=== PATIENT | female | born 1980 | race Two or more races ===

== ENCOUNTER 2024-02-15 13:02 | Outpatient (RCR) | payer OTHER, SELFPAY | END 2024-02-15 23:59 | disposition home or self-care (01) | LOC: RPT 13:02 | PROVIDERS: ATTENDING PHYSICIAN Physical Medicine & Rehabilitation Sports Medicine; FAMILY PHYSICIAN Family Medicine | DX: N39.3 Stress incontinence (female) (male) (principal); M25.552 Pain in left hip; M62.89 Other specified disorders of muscle | CPT/HCPCS: 97110; 97112; 97140; 97163 ==

== ENCOUNTER 2024-03-14 14:02 | Outpatient (RCR) | payer OTHER, SELFPAY | END 2024-03-14 23:59 | disposition home or self-care (01) | LOC: RPT 14:02 | PROVIDERS: ATTENDING PHYSICIAN Physical Medicine & Rehabilitation Sports Medicine; FAMILY PHYSICIAN Family Medicine | DX: N39.3 Stress incontinence (female) (male) (principal); M25.552 Pain in left hip; M62.89 Other specified disorders of muscle | CPT/HCPCS: 97110; 97112; 97140 ==

== ENCOUNTER 2024-04-18 15:02 | Outpatient (RCR) | payer OTHER, SELFPAY | END 2024-04-18 23:59 | disposition home or self-care (01) | LOC: RPT 15:02 | PROVIDERS: ATTENDING PHYSICIAN Physical Medicine & Rehabilitation Sports Medicine; FAMILY PHYSICIAN Family Medicine | DX: N39.3 Stress incontinence (female) (male) (principal); M25.552 Pain in left hip; M62.89 Other specified disorders of muscle; Z73.6 Limitation of activities due to disability | CPT/HCPCS: 97110; 97112; 97140 ==

== ENCOUNTER → 2024-06-13 06:41 | Outpatient (REF) | payer OTHER, SELFPAY | LOC: WDC 06:41 | PROVIDERS: ATTENDING PHYSICIAN Obstetrics & Gynecology; FAMILY PHYSICIAN Family Medicine | DX: Z12.31 Encounter for screening mammogram for malignant neoplasm of breast (principal) | CPT/HCPCS: 77063; 77067 ==

== ENCOUNTER 2024-11-06 07:08 | Outpatient (RCR) | payer OTHER, SELFPAY | END 2024-11-06 23:59 | disposition home or self-care (01) | LOC: RPT 07:08 | PROVIDERS: ATTENDING PHYSICIAN Physical Medicine & Rehabilitation Sports Medicine; FAMILY PHYSICIAN Family Medicine | DX: M62.89 Other specified disorders of muscle (principal); N39.3 Stress incontinence (female) (male); M54.17 Radiculopathy, lumbosacral region; M25.552 Pain in left hip; Z73.6 Limitation of activities due to disability; M72.2 Plantar fascial fibromatosis | CPT/HCPCS: 97110; 97162 ==

== ENCOUNTER 2024-12-11 15:45 | Outpatient (RCR) | payer OTHER, SELFPAY | END 2024-12-11 23:59 | disposition home or self-care (01) | LOC: RPT 15:45 | PROVIDERS: ATTENDING PHYSICIAN Physical Medicine & Rehabilitation Sports Medicine; FAMILY PHYSICIAN Family Medicine | DX: M62.89 Other specified disorders of muscle (principal); N39.3 Stress incontinence (female) (male); M54.17 Radiculopathy, lumbosacral region; M25.552 Pain in left hip; Z73.6 Limitation of activities due to disability; M72.2 Plantar fascial fibromatosis | CPT/HCPCS: 97110; 97112; 97140 ==

== ENCOUNTER 2025-01-01 17:03 | Outpatient (RCR) | payer OTHER, SELFPAY | END 2025-01-02 07:28 | disposition home or self-care (01) | LOC: RPT 17:03 | PROVIDERS: ATTENDING PHYSICIAN Physical Medicine & Rehabilitation Sports Medicine; FAMILY PHYSICIAN Family Medicine | DX: M62.89 Other specified disorders of muscle (principal); N39.3 Stress incontinence (female) (male); M54.17 Radiculopathy, lumbosacral region; M25.552 Pain in left hip; Z73.6 Limitation of activities due to disability; M72.2 Plantar fascial fibromatosis | CPT/HCPCS: 97110; 97112; 97140 ==

== ENCOUNTER → 2025-06-17 06:35 | Outpatient (REF) | payer OTHER, SELFPAY | LOC: WDC 06:35 | PROVIDERS: ATTENDING PHYSICIAN Obstetrics & Gynecology; FAMILY PHYSICIAN Family Medicine | DX: Z12.31 Encounter for screening mammogram for malignant neoplasm of breast (principal) | CPT/HCPCS: 77063; 77067 ==

== ENCOUNTER → 2025-06-24 08:29 | Outpatient (REF) | payer OTHER, SELFPAY | LOC: WDC 08:29 | PROVIDERS: ATTENDING PHYSICIAN Obstetrics & Gynecology; FAMILY PHYSICIAN Family Medicine | DX: R92.8 Other abnormal and inconclusive findings on diagnostic imaging of breast (principal) | CPT/HCPCS: 76642 ==